=== PATIENT | female | born 1990 | race Two or more races ===

== ENCOUNTER 2022-08-23 13:32 | Emergency (ER) | payer OTHER ==
[~2022-08-23] VITALS: Ht 170.2 cm; Wt 45.4 kg
[2022-08-23] MEDS ORDERED: PRENATAL + DHA1 EAC1 (13:49)
== END 2022-08-23 16:52 | disposition home or self-care (01) ==
LOC: ER 13:32
DX: O20.8 Other hemorrhage in early pregnancy (principal); Z3A.01 Less than 8 weeks gestation of pregnancy